=== PATIENT | female | born 1980 | race Caucasian/White ===

== ENCOUNTER 2022-11-12 16:51 | Emergency (ER) | payer BC ==
[2022-11-12] MEDS: LORazepam 0.5 MG Tab PO ONE (17:26)
[2022-11-12 17:48] LABS: CHLORIDE,CL 94 mEq/L (98-106); SODIUM,NA 131 mEq/L (136-145)
[2022-11-12 17:49] LABS: ESTIMATED GFR 115 mL/min (>=60)
== END 2022-11-12 18:20 | disposition home or self-care (01) ==
LOC: CC.ED 16:51
DX: F41.9 Anxiety disorder, unspecified (principal); E83.42 Hypomagnesemia; E87.1 Hypo-osmolality and hyponatremia; Z91.09 Other allergy status, other than to drugs and biological substances; Z79.899 Other long term (current) drug therapy
CPT/HCPCS: 36415; 71045; 80053; 83735; 84484; 85025; 93005; 93010; 99284; 99285; A9270-GY